=== PATIENT | male | born 1985 | race Caucasian/White ===

== ENCOUNTER 2019-12-25 18:58 | Emergency (ER) | payer MEDICAID, SELFPAY ==
[2019-12-25 19:41] VITALS: BP 133/76; PULSE 133; RESP 18; TEMP 36.7; O2SAT 99; BMI 31.3
[2019-12-25 22:02] VITALS: BP 111/91; PULSE 100; RESP 18; TEMP 36.6; O2SAT 97
--- NOTE | 2019-12-25 22:05 | ED_ITS ---
HPI - Skin/Abscess/Foreign Bdy General Chief complaint: Skin/Abscess/Foreign Body Stated complaint: CYST? Time Seen by Provider: 12/25/19 22:05 Source: patient Mode of arrival: ambulatory Limitations: no limitations History of Present Illness HPI narrative: Left thigh abscess for the past 4 days. States initially started as a pimple now formed a head little bigger than dollar coin Size. He denies any fever or chills. MD complaint: abscess/boil Onset (ago): day(s) Tetanus up to date: yes Location: LLE Severity: moderate Pain Consistency: constant Relieving factors: none Exacerbating factors: none Context: none Associated symptoms: denies other symptoms Treatments prior to arrival: none Related Data Previous Rx's Medication Instructions Recorded cephalexin [Keflex] 500 mg PO TID 10 Days #30 cap 12/25/19 sulfamethoxazole-trimethoprim 1 tab PO BID #14 tab 12/25/19 [Bactrim DS] Allergies Allergy/AdvReac Type Severity Reaction Status Date / Time No Known Allergies Allergy Verified 12/25/19 19:39 Review of Systems Review of Systems: Constitutional: No Weight loss, No Fever, No Chills, No Night Sweats, No Fatigue, No Malaise ENT/Mouth: No Hearing loss, No Ear Pain, No Nasal Congestion, No Sinus Pain, No Hoarseness, No sore throat, No Rhinorrhea, No Swallowing Difficulty Eyes: No Eye Pain, No Swelling, No Redness, No Foreign Body, No Discharge, No Vision Changes Cardiovascular: No Chest Pain, No SOB, No Dyspnea on Exertion, No Orthopnea, No Edema, No Palpitations Respiratory: No Cough, No Sputum, No Wheezing, No Smoke Exposure, No Dyspnea Gastrointestinal: No Nausea, No Vomiting, No Diarrhea, No Constipation, No abdominal Pain, No Hematochezia, No Melena Genitourinary: no irregular bleeding, No Dysuria, No Urinary Frequency, No Hematuria, No Urinary Incontinence, No Urgency, No Flank Pain, No Urinary Flow Changes, No Hesitancy Musculoskeletal: No joint pain, No Myalgias, No Joint Swelling Skin: as noted per HPI Neuro: No Weakness, No Numbness, No Paresthesias, No Loss of Consciousness, No Dizziness, No Headache Psych: No Anxiety/Panic, No Depression, No SI/HI/AH/VH, No Social Issues Heme/Lymph: No Bruising, No Bleeding,No Lymphadenopathy Endocrine: No Polyuria, No Polydipsia, No Temperature Intolerance Yes all other systems are reviewed and are negative [facility] Past Medical History Medical History (Updated 12/25/19 @ 23:55 by Raphael Hill NP) Cocaine abuse Social History Social History Smoking Status: Current every day smoker Smoked in Last 30 Days: Yes Use of substances other than those prescribed or required for medical reasons: Yes Substance Use Type: Crack/Cocaine and Marijuana Advance Directives: No Advance Directives Information Provided: No Physical Exam Vital Signs: Vital Signs: Vital Signs Temp Pulse Resp BP Pulse Ox 12/25/19 22:02 97.8 F 100 18 111/91 H 97 12/25/19 19:41 98.1 F 133 H 18 133/76 99 Body Mass Index 31.3 Reviewed Const: General: cooperative and healthy appearing; No acute distress or intoxicated appearing Nutritional Appearance: average body habitus Orientation/consciousness: patient oriented x3 HENMT: Head: Yes normal to inspection Ears: hearing grossly normal bilaterally Chest: Chest palpation & inspection: normal inspection of the chest Resp: Effort & Inspection: normal respiratory effort Cardio: Jugular venous distension: no JVD Skin: General skin exam: no rashes or lesions noted Full body images: 1. left thigh 4 cm annular area with central induration/ had formation. With very slight palpation/pressure open with purulent discharge. Erythema only to the site and not rest the thigh. Full range of motion / neurovascularly intact distally. Neuro: General: patient oriented x3 Extrem: General: Yes normal to inspection Course Course Course Narrative: After my evaluation he also reported to me that he had intercourse with a new partner and he is not from a with a female is requesting STI testing but does not want treatment at this point. Discharge Plan Discharge Clinical Impression: Abscess of skin or subcutaneous tissue, Concern about STD in male without diagnosis Patient Disposition: Home, Self-Care Instructions: Abscess (ED), Abscess Incision and Drainage (DC) Additional Instructions: today you had a superficial left thigh abscess drained. This is likely infected hair follicle that turn into infection. Warm compresses Soap water washes after 24 hours Take antibiotic as prescribed Return if any concerns or worse symptoms otherwise follow up with her primary care doctor as discussed Thank you Prescriptions: New cephalexin [Keflex] 500 mg capsule 500 mg PO TID 10 Days Qty: 30 RF: 0 sulfamethoxazole-trimethoprim [Bactrim DS] 800-160 mg tablet 1 tab PO BID Qty: 14 RF: 0 Referrals: ED Physician,Generic [Physician] - 2 days Raphael Hill CRAFT COORDINATOR [Emergency Midlevel Provider] - 3 days ( for wound check as needed) Interventions: ED Discharge Assessment Last Done: 12/25/19 22:24 Discharge Date/Time: 12/25/19 22:25
--- NOTE | 2019-12-25 22:28 | PC.NURSE ---
PT ABCESS DRAINED AT BEDSIDE BY JOSE ABEBE.
[2019-12-26 08:59] LABS: CT PCR NOT DETECTED (Not Detect.); NG PCR NOT DETECTED (Not Detect.)
== END 2019-12-25 22:25 | disposition home or self-care (01) ==
PROVIDERS: Nurse Practitioner Primary Care; Emergency Provider Internal Medicine
DX: L02.416 Cutaneous abscess of left lower limb (principal); M79.652 Pain in left thigh; Z79.899 Other long term (current) drug therapy; Z20.2 Contact with and (suspected) exposure to infections with a predominantly sexual mode of transmission
CPT/HCPCS: 10060; 87491; 87591; 99283; 99284

== ENCOUNTER 2022-01-27 10:48 | Emergency (ER) | payer MEDICAID, SELFPAY ==
--- NOTE | ~2022-01-27 | XR_ITS ---
EXAMINATION: XR KNEE, LEFT CLINICAL INFORMATION: Left knee pain. COMPARISON: None TECHNIQUE: Four views of the left knee. FINDINGS: Bones and soft tissues are normal. No fracture or joint effusion. Alignment is anatomic. Joint spaces are well maintained. No abnormal soft tissue calcification. XR/XR knee LT 2V IMPRESSION: Unremarkable left knee.
[2022-01-27 10:58] VITALS: BP 133/79; PULSE 92; RESP 18; TEMP 36.4; O2SAT 98; BMI 27.3
--- NOTE | 2022-01-27 12:14 | ED_ITS ---
HPI - Extremity Problem General Chief complaint: Extremity Problem Stated complaint: L Knee Pain No Injury Time Seen by Provider: 01/27/22 11:57 Source: patient Mode of arrival: ambulatory Limitations: no limitations History of Present Illness HPI Narrative: 36-year-old male presenting to the ER with complaints of left knee pain that started last night. He reports that he was in his basement he was needle down w hen he stood up he heard a ?pop?. And since then he has been having left knee pain and it worsens when he is tries to straighten out or bend the knee completely and and 90 degree angle. He reports that he has never had this problem in the past. He denies any fevers, chills, chest pain or shortness of breath, abdominal pain, flank pain, urinary or bowel symptoms, lower extremity edema or calf tenderness, recent travel or sick contacts, weakness, paresthesias, erythema to the joint or swelling to the joint or any other symptoms complaints or concerns at this time. MD Complaint: joint pain Onset (ago): day(s) (Since last night) Pain Consistency: constant Location: left and knee Quality: aching Radiation: none Relieving factors: nothing Exacerbating factors: range of motion, weight bearing, walking and palpation Associated symptoms: denies other symptoms Related Data Previous Rx's Medication Instructions Recorded cephalexin 500 mg capsule (Keflex) 500 mg PO TID 10 days #30 caps 12/25/19 sulfamethoxazole 800 1 tab PO BID #14 tabs 12/25/19 mg-trimethoprim 160 mg tablet (Bactrim DS) ibuprofen 800 mg tablet 800 mg PO Q8H PRN pain #14 tabs 01/27/22 tramadol 50 mg tablet 50 mg PO Q8H PRN pain #14 tabs 01/27/22 Allergies Allergy/AdvReac Type Severity Reaction Status Date / Time No Known Allergies Allergy Verified 12/25/19 19:39 Review of Systems Review of Systems: Constitutional : No Weight loss, No Fever, No Chills, No Night Sweats, No Fatigue, No Malaise ENT/Mouth : No Hearing loss, No Ear Pain, No Nasal Congestion, No Sinus Pain, No Hoarseness, No sore throat, No Rhinorrhea, No Swallowing Difficulty Eyes: No Eye Pain, No Swelling, No Redness, No Foreign Body, No Discharge, No Vision Changes Cardiovascular : No Chest Pain, No SOB, No Dyspnea on Exertion, No Orthopnea, No Edema, No Palpitations Respiratory : No Cough, No Sputum, No Wheezing, No Smoke Exposure, No Dyspnea Gastrointestinal : No Nausea, No Vomiting, No Diarrhea, No Constipation, No abdominal Pain, No Hematochezia, No Melena Genitourinary : no irregular bleeding, No Dysuria, No Urinary Frequency, No Hematuria, No Urinary Incontinence, No Urgency, No Flank Pain, No Urinary Flow Changes, No Hesitancy Musculoskeletal : + left knee joint pain, No Myalgias, No Joint Swelling Skin : No Skin Lesions, No rash Neuro : No Weakness, No Numbness, No Paresthesias, No Loss of Consciousness, No Dizziness, No Headache Psych : No Anxiety/Panic, No Depression, No SI/HI/AH/VH, No Social Issues, Heme/Lymph: No Bruising, No Bleeding,No Lymphadenopathy Endocrine : No Polyuria, No Polydipsia, No Temperature Intolerance Yes all other systems are reviewed and are negative [facility] Past Medical History Attestation statement: The following information was validated with the patient. Source: old records reviewed and nursing notes reviewed Medical History Cocaine abuse Social History Social History Substance Use Type: Crack/Cocaine and Marijuana Advance Directives: No Advance Directives Information Provided: Yes Physical Exam Vital Signs: Vital Signs: Last Vital Signs Temp 97.6 F 01/27/22 10:58 Pulse 92 01/27/22 10:58 Resp 18 01/27/22 10:58 BP 133/79 01/27/22 10:58 Pulse Ox 98 01/27/22 10:58 O2 Del Method 01/27/22 10:58 BMI result Body Mass Index 27.3 vital signs have been reviewed as normal and appeared to be correct. Blood pressure normal Heart rate normal. Respiration rate normal. Temperature normal. Oxygen saturation normal. Appearance: Alert. Oriented X3. No acute distress. Head: Normal external exam. Normocephalic. Atraumatic. Eyes: PERRLA. EOMI. Conjunctiva and sclera normal. Eyelids normal. ENT: Pharynx normal. Uvula midline. Moist mucous membranes. Neck: Normal inspection. Neck supple. FROM. CVS: Normal heart rate and rhythm. Respiratory: No respiratory distress. Painless inspiration. Skin: Skin warm and dry. Normal skin color. Normal skin turgor. No rashes/lesions/lacerations noted. Extremities: Patient moderate tenderness palpation to the left knee at the medial aspect of the knee. No obvious ligamentous or tendon injury noted. Not consistent muscle rupture noted. Not consistent with septic joint. There is no erythema. It does not feel warm to touch. He can perform full range of motion although reports pain with full extension and full flexion of the left knee. Otherwise all other extremities have full range of motion nontender. There is no lower extremity edema or calf tenderness noted. Neuro: Oriented X 3. No motor deficit. No sensory deficit. Reflexes normal. Normal steady gait. No focal neuro deficits noted. Vascular: + radial pulses/+ 2 distal pedal pulses/+2 dorsalis pedis b/l. Normal cap refill. No cyanosis noted to upper extremity nails and lower extremity toes nails. Course Course Course Narrative: Patient presenting with atraumatic knee pain since last night where he heard a ?pop?. Since then he has been having pain with ambulation and weight-bearing. On exam not consistent with septic joint. He does report pain with full flexion and extension although is able to perform. No obvious ligamentous or tendon injury noted. Not consistent muscle rupture. Not consistent with DVT. No lower extremity edema or calf tenderness noted. Therefore at this time will place an Navid wrap treat symptomatically and instructed follow-up with PCP and orthopedics if symptoms persist. Patient understands agrees with this plan. And to return if any new or worsening symptoms. MDM - Extremity (Nontraumatic) Medical Records Attestation: I reviewed the patient's medical records. Imaging Data Left knee x-ray: Attestation: I personally reviewed and interpreted this imaging study as follows: Radiologist's impression: FINDINGS: Bones and soft tissues are normal. No fracture or joint effusion. Alignment is anatomic. Joint spaces are well maintained. No abnormal soft tissue calcification.? XR/XR knee LT 2V IMPRESSION: Unremarkable left knee. ? Discharge Plan Discharge Clinical Impression: Strain of left knee Patient Disposition: Home, Self-Care Instructions: Crutch Instructions (ED), Knee Pain (ED) Prescriptions: New ibuprofen 800 mg tablet 800 mg PO Q8H PRN (Reason: pain) Qty: 14 0RF tramadol 50 mg tablet 50 mg PO Q8H PRN (Reason: pain) Qty: 14 0RF Rx Instructions: May partially fill upon patient request No Action cephalexin [Keflex] 500 mg capsule 500 mg PO TID 10 Days Qty: 30 0RF sulfamethoxazole-trimethoprim [Bactrim DS] 800-160 mg tablet 1 tab PO BID Qty: 14 0RF Referrals: Physician,None [Primary Care Provider] - 2 days (your pcp) Stand Alone Forms: Work/School Release Print Language: Frisian
== END 2022-01-27 12:26 | disposition home or self-care (01) ==
PROVIDERS: Emergency Provider Student in an Organized Health Care Education/Training Program
DX: M25.562 Pain in left knee (principal); Z79.899 Other long term (current) drug therapy
CPT/HCPCS: 73560; 99282; 99283